=== PATIENT | female | born 1980 | race Caucasian/White ===

== ENCOUNTER 2016-09-23 15:36 | Inpatient (IN) | payer MEDICARE, OTHER ==
[~2016-09-23] VITALS: Ht 167.6 cm; Wt 83.5 kg
--- NOTE | ~2016-09-23 | A ---
[facility] Nutrition Therapy DATE: 09/24/16 Patient: ANGLE GLOVER Physician: STUART Address: Ghulam GARCIA Room/Bed: [address], Zip: [place] [id number] Admit Date: 09/23/16 Date of : [birth year] Height: 5 6 Weight: 196 89 NUTRITIONAL ASSESSMENT: REASON: PT SEEN FOR DX PT IS 36 Y.O. FEMALE ADMITTED FOR DKA PMH: UNCONTROLLED DM, HTN, GERD, ANXIETY, DEPRESSION, PERIPHERAL NEUROPATHY, COPD, HX OF CHOLECYSTECTOMY Anthropometrics: 5'6", WT: 184# (84 KG), BMI: 29.7 Labs: GLU: 159, CA+:7.4, M.5, PHOS: 1.7, A1c: 12.8 (BACK IN 2013) Meds: LOVENOX, NOVOLOG, KCL, MAG SULFATE, ZOFRAN, PROTONIX I/O & Bowel function: 1543/3, 2 BMs NOTED Skin Integrity: NO KNOWN SKIN ISSUES Estimated Nutrition Needs: INCREASED NEEDS 2' DECREASED PO INTAKE AND APPETITE, CURRENT CONDITION, ?UNINTENTIONAL WEIGHT LOSS Assessment: CHART REVIEWED AND EVENTS NOTED. PT SEEN FOR DX. PT SLEEPY/LETHARGIC AT TIME OF VISIT. RD ATTEMPTED TO CONDUCT NUTRITION INTERVIEW AND PROVIDE CC WRITTEN AND VERBAL DIET EDUCATION BUT UNSUCCESSFUL. PT NODDED "YES" TO TRYING GLUCERNA SHAKES FOR ADDITIONAL PROTEIN, KCAL AND FLUIDS. PER RN AND CHART, PT NOTED TO HAVE N/V/D PRIOR TO ADMIT, DECREASED APPETITE NOTED. PER [employer] PT WEIGHED ~262# BACK IN 2013. NO FAMILY IN ROOM AT TIME OF VISIT. RD TO FOLLOW. SEE RECOMMENDATIONS BELOW. Dx: INADEQUATE PROTEIN-ENERGY INTAKE R/T CURRENT CONDITION, CURRENT DIAGNOSIS AEB PT NOTED TO HAVE DECREASED APPETITE, N/V/D NOTED PRIOR TO ADMIT. IMPAIRED GLYCEMIC CONTROL R/T DX, PMH AEB ELEVATED BLOOD SUGAR LEVELS, PT ADMITTED IN 2013 FOR UNCONTROLLED DM. (A1c IN 2013 WAS 12.8). Intervention: 1. CC DIET 2. GLUCERNA SHAKES BID 3. WRITTEN DIET EDUCATION Monitoring, Evaluation and Goals: 1. ORAL INTAKE; CONSUME/TOLERATE >50% OF MEALS AND SUPPLEMENTS 2. WEIGHTS; PROMOTE GRADUAL WEIGHT LOSS TOWARDS HEALTHY BMI; PREVENT UNINTENTIONAL WEIGHT LOSS 3. LABS; GLU, LYTES [facility] Nutrition Therapy DATE: 09/24/16 Patient: ANGLE GLOVER Physician: STUART Address: [facility] ASHISH GARCIA Room/Bed: [address], Zip: [place] [address] Admit Date: 09/23/16 Date of : [birth year] Height: 5 6 Weight: 196 89 4. GI; PROMOTE REGULAR GI FUNCTION MONITOR: -PO INTAKE/APPETITE -WEIGHTS -SUPPLEMENT INTAKE Recommendations: 1. REPLETE LYTES TO WNL-MG+ AND PHOS LOW 2. PLEASE ORDER STRAWBERRY GLUCERNA SHAKES BID W/MEALS 3. RECOMMEND TO OBTAIN UPDATED A1c TO FURTHER ASSESS DM MANAGEMENT 4. APPRECIATE FAMILY AND STAFF TO ENCOURAGE SLOW GRADUAL PO INTAKE RD WILL F/U PER PROTOCOL PT IS MILD/MODERATELY COMPROMISED Respectfully, NICK EDMONDSON MS, RD, LD Food and Nutritional Services [facility] cc: client file
--- NOTE | ~2016-09-23 | HP ---
Unit #: [id number] #: [id number] Patient: ANGLE GLOVER [id number] [address] [place], [place] [address] [id number] I MR#: [id number] NAME: ANGLE GLOVER ROOM: [facility] Age: 36 Sex: F Admission Date: 09/23/2016 : 1980 Attending Physician: Pablo Weldon M.D. HISTORY AND PHYSICAL CHIEF COMPLAINT Nausea, vomiting, diarrhea for a few days; she was found to be in DKA. DISCUSSION This is a 36-year-old female who has a history of insulin-dependent diabetes, history of anxiety, depression, GERD, chronic pain syndrome, hypertension, peripheral neuropathy. She presented to emergency room in [facility] with chief complaint of nausea, vomiting, diarrhea for a few days. She was found to be on blood test in diabetic ketoacidosis and eventually she was admitted here in the ICU for DKA. She feels better now. She denies fever, chills, cough. She has been having nausea, vomiting, diarrhea for three days and she denies chest pain, diaphoresis or any other complaint. PAST MEDICAL HISTORY 1. History of anxiety/depression. 2. GERD. 3. Chronic pain syndrome. 4. Hypertension. 5. History of peripheral neuropathy. PAST SURGICAL HISTORY 1. History of cholecystectomy. 2. Tonsillectomy. 3. History of colon resection. 4. History of EGD. 5. History of colon biopsy. SOCIAL HISTORY She smokes a half pack daily, denies alcohol. She denies other illicit drug use. FAMILY HISTORY Father is from heart problems. Mother had . HOME MEDICATIONS Medications from home are followin. Lantus 30 units q.h.s. 2. Zofran 4 mg ODT p.r.n. 3. Topamax 50 mg daily. 4. Glucophage 500 b.i.d. 5. Protonix 40 mg daily. 6. Bentyl 20 mg b.i.d. 7. Neurontin 600 mg t.i.d. Unit #: [id number] #: [id number] Patient: ANGLE GLOVER 8. Lisinopril 20 mg daily. 9. Humalog sliding scale. 10. Amitriptyline 150 mg q.h.s. 11. Methocarbamol 500 mg t.i.d. 12. Tenormin 100 mg daily. 13. Diclofenac sodium 75 mg daily. 14. Hydrochlorothiazide 25 mg daily. REVIEW OF SYSTEMS CONSTITUTIONAL: No fever. No chills. PULMONARY: No wheezing. No shortness of breath. CARDIOVASCULAR: No chest pain. No diaphoresis. GASTROINTESTINAL: Positive for nausea, vomiting, diarrhea for a few days. GENITOURINARY: No dysuria. NEUROLOGICAL: No headache. No dizziness. SKIN: No rash. PHYSICAL EXAMINATION GENERAL: On examination this is a middle-aged female lying in the bed comfortably, currently not in any distress. On general examination she is alert, awake, oriented x3, comfortable, not in any distress. VITAL SIGNS: Current vitals are following: Temperature 98, heart rate 116, respiratory rate 20, blood pressure 134/80. HEENT: On HEENT examination pupils equally react to light and accommodation. Head is normocephalic and atraumatic. NECK: Supple. No JVD. HEART: S1, S2, regular rate and rhythm. ABDOMEN: Soft, nontender and nondistended. Bowel sounds positive. LUNGS: Clear to auscultation bilaterally. No rhonchi. No wheezing. EXTREMITIES: Inspection normal. No cyanosis. No clubbing. No edema. PSYCHIATRIC: Cooperative, normal mood and affect. SKIN: Warm and dry. No rash. DIAGNOSTIC STUDIES LABORATORY: Workup is following: ABG with pH 7.515, bicarb 105.6. Glucose 420, sodium 131, potassium 5.4, BUN is 17, creatinine 1.7, anion gap . ASSESSMENT AND PLAN 1. Diabetic ketoacidosis: Continue insulin drip as per insulin DKA protocol. 2. History of anxiety/depression. 3. Gastroesophageal reflux disease. 4. Chronic pain syndrome. 5. Hypertension. 6. Peripheral neuropathy. 7. DVT prophylaxis: Will place the patient on Lovenox. Dictated by Efra Plunkett/da TD: 09/23/2016 22:20 JOB #: [id number] Unit #: [id number] #: [id number] Patient: ANGLE GLOVER HISTORY AND PHYSICAL Page 1 of 1 X X HISTORY AND PHYSICAL
--- NOTE | ~2016-09-23 | EKG ---
PATIENT: ANGLE GLOVER UNIT #: [id number] Ventricular Rate: 116 BPM Atrial Rate: 116 BPM P-R Interval: 158 ms QRS Duration: 76 ms Q-T Interval: 322 ms QTC Calculation(Bezet): 447 ms P [place]: 60 degrees Calculated R [place]: 60 degrees Calculated T [place]: 55 degrees Diagnosis Line: Sinus tachycardia Diagnosis Line: Possible Left atrial enlargement Diagnosis Line: Borderline ECG Diagnosis Line: No previous ECGs available Diagnosis Line: Confirmed by GLYNN HOLDEN MD ([id number]) on Diagnosis Line: 09/24/2016 2:00:22 PM INTERPRETING MD: ADINA NEUMANN
--- NOTE | ~2016-09-23 | DS ---
Unit #: [id number] #: [id number] Patient: ANGLE BRIGHT [id number] [address] [address] [id number] I MR#: [id number] NAME: ANGLE BRIGHT ROOM: 233 Age: 36 Sex: F Admission Date: 09/23/2016 : 1980 Discharge Date: 09/25/2016 Attending Physician: Yasmin Mike M.D. DISCHARGE SUMMARY PRIMARY CARE PHYSICIAN Unknown. PRINCIPAL DIAGNOSES 1. Diabetic ketoacidosis. 2. Diabetes mellitus type 1, uncontrolled with hemoglobin A1c of 9.3. 3. Non-anion gap metabolic acidosis likely a combination of renal tubular acidosis with perhaps some underlying starvation ketosis. 4. Gastroesophageal reflux disease. 5. Chronic pain syndrome. 6. Irritable bowel syndrome. 7. Hypertension. 8. Anxiety and depression. 9. Diabetic peripheral neuropathy. 10. Protein malnutrition, mild. 11. Tobacco use. CONSULTANTS None. PROCEDURES Chest x-ray on 09/23/2016, which was normal. CLINICAL HISTORY AND HOSPITAL COURSE Ms. Bright is a nice 36-year-old female, who presents to the emergency department with nausea, vomiting, and diarrhea. In the emergency department, the patient was found to be in DKA. The patient's anion gap was significantly elevated and her glucose was 420. She was subsequently admitted to the ICU. The patient was placed on insulin drip. Unfortunately, her sugars remained relatively well controlled. Her anion gap resolved and she was transitioned to subcutaneous insulin and started on diet. She did have some mild nausea initially with initiation of diet, but this has resolved. Sugars on home dose of insulin currently are still mildly elevated in the 200s. I am going to schedule a dose of NovoLog to take with meals without fail. In addition, continue Lantus and she has been counseled regarding diabetic diet. The patient's only other complaint during hospitalization was some reflux. She was placed back on her Protonix b.i.d. which is a home dose and symptoms resolved. She did have one of two blood cultures, which ultimately was determined to be contaminant. Unit #: [id number] #: [id number] Patient: ANGLE BRIGHT DISCHARGE CONDITION Stable. DISCHARGE STATUS Discharged to home. DISCHARGE MEDICATIONS Zofran 4 mg p.o. q.6 hours p.r.n. for nausea and vomiting, gabapentin 600 mg t.i.d., Topamax 50 mg daily, amitriptyline 150 mg at bedtime, metformin 500 mg b.i.d., Bentyl 20 mg p.o. b.i.d., atenolol 100 mg daily, hydrochlorothiazide 25 mg daily, lisinopril 20 mg daily, Humalog 3 units subcu t.i.d. with meals with associated sliding scale, Lantus 30 units subcutaneously at bedtime, Protonix 40 mg b.i.d., methocarbamol 500 mg p.o. t.i.d. DISCHARGE INSTRUCTIONS The patient was instructed to follow a constant carb diet. She should obtain Accu-Cheks a.c. and h.s. at home. She can increase her activity as tolerated. She should refrain from any further tobacco use. FOLLOWUP The patient will follow up with her primary care provider in 2 weeks. Dictated by... Yasmin Mike M.D. FRANCO/magno TD: 09/28/2016 05:56 JOB #: [id number] DISCHARGE SUMMARY Page 1 of 1 X Yasmin Mike MD X DISCHARGE SUMMARY
--- NOTE | ~2016-09-23 | CR72 ---
[facility] A Service of [facility] & [facility] RADIOLOGY TEXT RESULTS PATIENT: ANGLE GLOVER LOCATION: [place] [address] : [birth year] UNIT #: [id number] AGE: [address]: Yasmin Mike MD SEX: F ORDER DR: [id number] [facility] [address] [facility]. [place], [place] [address] [id number] I MR#: [id number] Acc #: [id number] NAME: ANGLE GLOVER : 1980 SEX: F STUDY DATE/TIME: 09/23/2016 19:49 UNIT: [facility] ROOM: [facility] STUDY DESCRIPTION: CR Chest Single View Portable Attending Physician: Pablo Weldon M.D. Ordering Physician: Pablo Weldon M.D. MEDICAL IMAGING REPORT This report is preliminary unless electronic signature is present EXAM Chest x-ray 09/23/2016 HISTORY 36-year-old female with diabetic ketoacidosis. DKA protocol. She notes a 3-day history of cough, nausea and vomiting. TECHNIQUE AP portable chest x-ray. FINDINGS The lungs are expanded and clear. Heart size and pulmonary vascularity are normal. No visible pulmonary infiltrate, pulmonary edema or pleural effusion. IMPRESSION Negative chest. Dictated by... Leonidas Clark M.D. THIS IS AN ELECTRONICALLY VERIFIED REPORT Leonidas Clark M.D. at 09/24/2016 4:55 PM AKILW/tatyana TD: 09/24/2016 00:50 JOB #: [id number] MEDICAL IMAGING REPORT Page 1 of 1 COPY
[~2016-09-23 15:36] MED LIST: AMITRIPTYLINE150 MG PO; ATENOLOL PO; BENTYL20 MG PO; HYDROCHLOROTHIA25 MG PO; METHOCARBAMOL500 MG PO; MULTI VITAMIN1 EACH PO; NORVASC10 MG PO; PROTONIX PO; VOLTAREN75 MG PO
[2016-09-23] MEDS ORDERED: LISINOPRIL20 MG PO (18:53)
[2016-09-23] MEDS ORDERED: NEURONTIN600 MG PO (18:53)
[2016-09-23] MEDS ORDERED: HUMALOG100 UNIT/1 SUBQ (18:54)
[2016-09-23] MEDS ORDERED: LANTUS100 U/ML SUBQ (18:54)
[2016-09-23] MEDS ORDERED: ZOFRAN ODT4 M1 PO (18:55)
[2016-09-23] MEDS ORDERED: TOPAMAX50 MG PO (18:55)
[2016-09-23 19:51] LABS: ARTERIAL BLD GAS O2 SATURATION 97.2 % (90.0-100.0); ARTERIAL BLOOD GAS CARBOXY HB 0.8 %sat (0.0-9.0); ARTERIAL BLOOD GAS HCO3 9.9 mmol/L; ARTERIAL BLOOD GAS MET HB 0.8 %sat (0.0-2.0); ARTERIAL BLOOD GAS pH 7.243 (7.350-7.450)
[2016-09-23 19:52] LABS: ARTERIAL BLOOD GAS ALLEN TEST NORMAL; ARTERIAL BLOOD GAS ART SITE LEFT RADIAL; ARTERIAL BLOOD GAS DELIVERY ROOM AIR; ARTERIAL DRAW? YES
[2016-09-23 20:48] LABS: BETA HYDROXYBUTYRATE 7.69 MMOL/L (0.02-0.27); BUN/CREATININE RATIO 13.33; CALCIUM SERUM 7.8 mg/dL (8.4-10.2); CREATININE SERUM 0.9 mg/dL (0.6-1.4); GLOM FILT RATE Estimated 81.2 mL/min (>60); POTASSIUM 3.7 mmol/L (3.5-5.1)
[2016-09-23] MEDS ORDERED: GLUCOPHAGE500 MG PO (21:02)
[2016-09-23 22:05] LABS: URINE SOURCE CLEAN CATCH
[2016-09-23 22:10] LABS: URINE APPEARANCE CLEAR; URINE BILIRUBIN NEG (NEG); URINE BLOOD NEG (NEG); URINE COLOR YELLOW; URINE GLUCOSE 500 MG/DL (NEG); URINE KETONE 3+ (NEG); URINE LEUKOCYTE ESTERASE NEG (NEG); URINE NITRATE NEG (NEG); URINE PH 5.5 (5-8); URINE PROTEIN 1+ (NEG); URINE SPECIFIC GRAVITY 1.023 (1.003-1.035)
[2016-09-23 22:12] LABS: URBCS1 AUWI 0-2 /[HPF] (0-2); URINE BACTERIA AUWI 1+ (NEGATIVE); URINE SQUAMOUS EPITHELIAL CELL OCC /[HPF]
[2016-09-24 01:06] LABS: BUN/CREATININE RATIO 11.25; CALCIUM SERUM 7.6 mg/dL (8.4-10.2); CREATININE SERUM 0.8 mg/dL (0.6-1.4); GLOM FILT RATE Estimated 93.6 mL/min (>60); POTASSIUM 3.3 mmol/L (3.5-5.1)
[2016-09-24 09:12] LABS: BUN/CREATININE RATIO 11.25; CALCIUM SERUM 7.4 mg/dL (8.4-10.2); CREATININE SERUM 0.8 mg/dL (0.6-1.4); GLOM FILT RATE Estimated 93.6 mL/min (>60); MAGNESIUM 1.5 mg/dL (1.6-3.0); POTASSIUM 3.9 mmol/L (3.5-5.1)
[2016-09-24 15:42] LABS: CALCIUM SERUM 7.3 mg/dL (8.4-10.2); CREATININE SERUM 0.7 mg/dL (0.6-1.4); GLOM FILT RATE Estimated 109.9 mL/min (>60); POTASSIUM 3.4 mmol/L (3.5-5.1)
[2016-09-25 06:35] LABS: CALCIUM SERUM 7.8 mg/dL (8.4-10.2); CREATININE SERUM 0.5 mg/dL (0.6-1.4); GLOM FILT RATE Estimated 122.8 mL/min (>60); POTASSIUM 3.7 mmol/L (3.5-5.1)
[2016-09-25] MEDS ORDERED: HUMALOG100 UNIT/1 SUBQ (10:28)
== END 2016-09-25 13:37 | disposition home or self-care (01) | DRG 638 ==
LOC: UNDOADMOB 15:36 → CICCU3 15:36 → C2A 15:40 → CICCU3 15:40 → C2A 09-24 15:57
PROVIDERS: Internal Medicine
PROC: 02HV33Z Insertion of Infusion Device into Superior Vena Cava, Percutaneous Approach (ICD-10-PCS; principal; 2016-09-23)
PROC: 4A02X4A Measurement of Cardiac Electrical Activity, Guidance, External Approach (ICD-10-PCS; 2016-09-23)
DX: E10.10 Type 1 diabetes mellitus with ketoacidosis without coma (principal); E44.1 Mild protein-calorie malnutrition; I10 Essential (primary) hypertension; Z79.4 Long term (current) use of insulin; N25.89 Other disorders resulting from impaired renal tubular function; G89.4 Chronic pain syndrome; K21.9 Gastro-esophageal reflux disease without esophagitis; K58.9 Irritable bowel syndrome, unspecified; F41.9 Anxiety disorder, unspecified; F32.9 Major depressive disorder, single episode, unspecified; Z68.29 Body mass index [BMI] 29.0-29.9, adult; F17.200 Nicotine dependence, unspecified, uncomplicated; Z90.49 Acquired absence of other specified parts of digestive tract; Z82.49 Family history of ischemic heart disease and other diseases of the circulatory system
CPT/HCPCS: 36600; 71010; 80048; 81003; 82010; 82150; 82803; 82947; 83036; 83690; 83735; 84100; 84132; 87040; 93005; J1650; J1815; J2405; J3370; J3475; J3490

== ENCOUNTER 2016-10-11 17:36 | Inpatient (IN) | payer MEDICARE ==
[~2016-10-11] VITALS: Ht 167.6 cm; Wt 89.0 kg
--- NOTE | ~2016-10-11 | DS ---
Unit #: [id number] #: [id number] Patient: ANGLE GLOVER [id number] [address] [address] [id number] I MR#: [id number] NAME: ANGLE GLOVER ROOM: 229 Age: 36 Sex: F Admission Date: 10/11/2016 : 1980 Discharge Date: 10/13/2016 Attending Physician: Yasmin Mike M.D. Primary Care Physician: No Primary Care Physician DISCHARGE SUMMARY ADDENDUM Please note cost of insulin was checked in our [facility], and the patient's insulins and pen needles are all approximately $8 each, which she states she can afford. Thus, discharge medications are as follows: DISCHARGE MEDICATIONS 1. Zofran oral disintegrating tablet, 4 mg p.o. q.6 hours p.r.n. nausea. 2. Topamax 50 mg daily. 3. Amitriptyline 150 mg at bedtime. 4. Paxil 20 mg each morning. 5. Metformin 500 mg p.o. b.i.d. 6. Bentyl 20 mg 2 tablets b.i.d. 7. Atenolol 25 mg daily. 8. Lisinopril 20 mg 1/2 tablet p.o. daily. 9. Humalog 3 units subcu t.i.d. with meals with associated sliding scale. 10. Lantus 30 units subcutaneously at bedtime. 11. Protonix 40 mg b.i.d. 12. Methocarbamol 500 mg p.o. t.i.d. NOTE: Glucometer, test strips, lancets were all written, as well. DISCHARGE INSTRUCTIONS As previously dictated. Dictated by... Yasmin Mike M.D. FRANCO/suzy TD: 10/17/2016 07:45 JOB #: [id number] Unit #: [id number] #: [id number] Patient: ANGLE GLOVER DISCHARGE SUMMARY Page 1 of 1 X Yasmin Mike MD X DISCHARGE SUMMARY
--- NOTE | ~2016-10-11 | DS ---
Unit #: [id number] #: [id number] Patient: ANGLE BRIGHT [id number] [address] [address] [id number] I MR#: [id number] NAME: ANGLE BRIGHT ROOM: 229 Age: 36 Sex: F Admission Date: 10/11/2016 : 1980 Discharge Date: 10/13/2016 Attending Physician: Yasmin Mike M.D. Primary Care Physician: No Primary Care Physician DISCHARGE SUMMARY PRINCIPAL DIAGNOSES 1. Diabetic ketoacidosis. 2. Diabetes mellitus type 1, uncontrolled with hemoglobin A1c of 9.1. 3. Hypokalemia. 4. Hypophosphatemia. 5. Hypomagnesemia. 6. Diabetic peripheral neuropathy. Off of gabapentin. 7. Chronic pain syndrome. 8. Irritable bowel disease. 9. Medication induced hypoglycemia. 10. Anxiety and depression. 11. Gastroesophageal reflux disease. 12. Moderate protein malnutrition. CONSULTANTS None. PROCEDURES PERFORMED Chest x-ray on 10/12/2016 without any acute findings. CLINICAL HISTORY/HOSPITAL COURSE Ms. Bright is a nice 36-year-old female who presented to the emergency department with complaints of feeling ill with nausea, vomiting and diarrhea. She was found to be in diabetic ketoacidosis in the emergency department. She was started on IV fluids, insulin drip and admitted to the ICU. Overnight the patient's blood sugars improved significantly and her anion gap closed. She was transitioned to subcutaneous insulin and has subsequently been transferred to the medical floor. Sugars this morning are actually mildly hypoglycemic, but this is improved after diet. The patient did have several associated electrolyte abnormalities, all of which are in the process of being replaced or have been replaced. I will note the patient was admitted to this facility in September with diabetic ketoacidosis as well. Review of medications from her pharmacy indicates that she has likely been out of her Lantus for quite some time. I am going to check the cost of her insulin at this pharmacy and if too expensive, will try to adjust her regimen. My clinical suspicion is that cost is a significant factor in her recurrent admissions. The patient will be discharged home later today. DISCHARGE CONDITION Unit #: [id number] #: [id number] Patient: ANGLE BRIGHT Stable. DISCHARGE STATUS Discharge to home. DISCHARGE MEDICATIONS Will be dictated as an addendum. DISCHARGE INSTRUCTIONS 1. The patient is instructed to follow a heart healthy, constant carb diet. 2. Continue Accu-Cheks morning and evening at home. 3. She can increase her activity as tolerated. FOLLOWUP The patient will follow up with her primary manager outpatient, Dr. Hanna Hayes, in two weeks. Dictated by... Yasmin Mike M.D. FRANCO/eve TD: 10/13/2016 09:57 JOB #: [id number] DISCHARGE SUMMARY Page 1 of 1 X Yasmin Mike MD X DISCHARGE SUMMARY
--- NOTE | ~2016-10-11 | HP ---
Unit #: [id number] #: [id number] Patient: ANGLE GLOVER [id number] [address] [address] [id number] I MR#: [id number] NAME: ANGLE GLOVER ROOM: [facility] Age: 36 Sex: F Admission Date: 10/11/2016 : 1980 Attending Physician: Jessica Alonzo M.D. Primary Care Physician: No Primary Care Physician HISTORY AND PHYSICAL CHIEF COMPLAINT Diabetic ketoacidosis. HISTORY This pleasant 36-year-old female with type 2 diabetes mellitus, GERD, hypertension, was transferred from [place] emergency department for diabetic ketoacidosis. The patient states that she felt somewhat ill last evening. Early this morning developed nonblood nausea, vomiting, diarrhea, felt hot. Also experienced polyuria and polydipsia. She was at her primary care physician, who found her serum glucose to be elevated and the patient, and the patient was sent to the emergency department. In the ER, the patient was found to be in DKA. Her pH was 7.17, serum glucose 412, CO2 8 with an anion gap of 23. She was bolused, I believe, with 2 L of saline, given 10 IV of regular Novolin and started on a Novolin R drip. She currently has an Accu-Chek of 128 on 3 units/hour of Novolin R. Currently is feeling improved. Denies ill contacts, eating anything out of the ordinary, recent travel or antibiotics. She was last admitted to this facility about two weeks ago for DKA with nausea, vomiting and diarrhea. PAST MEDICAL HISTORY 1. IDDM with peripheral neuropathy, diagnosed 09/2013. 2. Anxiety and depression. 3. GERD. 4. Chronic back pain. 5. Essential hypertension. 6. Possible thyroid disease. 7. Irritable bowel syndrome. 8. Admission 09/2013 for ischemic distal ileum requiring partial colectomy and drainage of a pelvic abscess. Patient required mechanical ventilation at that time, was septic with acute kidney injury. It was during that admission that she was diagnosed with diabetes mellitus. 9. Cholecystectomy. 10. Tonsillectomy. 11. EGD. ALLERGIES No known drug allergies. HOME MEDICATIONS 1. Lantus 30 units subcu q. h.s. 2. I believe 3 units of Humalog t.i.d. plus sliding scale. Unit #: [id number] #: [id number] Patient: ANGLE GLOVER 3. Bentyl 20 mg q.i.d. 4. Protonix 40 mg b.i.d. 5. Neurontin 600 mg t.i.d. 6. Atenolol, possibly 25 mg b.i.d. 7. Lisinopril 20 mg daily. 8. Topamax 50 mg daily or b.i.d. 9. Elavil 150 mg q. h.s. 10. P.r.n. Zofran. 11. Robaxin 500 mg t.i.d. 12. Hydrochlorothiazide 25 mg daily. 13. Metformin 500 mg b.i.d. 14. Glipizide 5 mg b.i.d. FAMILY HISTORY Diabetes mellitus and CAD. SOCIAL HISTORY The patient lives with her fiance. She was smoking up to a half pack per day of tobacco until a week ago when she stopped smoking. Does not drink alcohol or use illicit drugs. REVIEW OF SYSTEMS Notable for nausea, vomiting, diarrhea, feeling hot, diabetes, neuropathy, hypertension, chronic back pain, irritable bowel syndrome, anxiety, depression, migraine headaches, above mentioned surgeries, polyuria, polydipsia, diabetes. All other systems were reviewed and otherwise negative. PHYSICAL EXAMINATION GENERAL APPEARANCE: Pleasant, moderately obese 36-year-old female who currently is in no acute distress. VITAL SIGNS: Temperature prior to arrival was 96.7. Her current systolic blood pressure is 97, O2 saturation 100%, heart rate 110. HEENT: Eyes PERRLA. Extraocular muscles are intact. Pharynx is benign, edentulous. NECK: Supple with possibly a little bit of generous thyroid. No adenopathy. CHEST: Clear. CARDIAC: Normal S1 and S2 without murmur. ABDOMEN: Bowel sounds are present. Well-healed scars noted. Nontender. No hepatosplenomegaly or masses. EXTREMITIES: Without C, C or E. Pedal pulses are present. No ulcers on the feet. NEUROLOGIC EXAM: The patient is awake, alert, oriented. Her cranial nerves are intact. She has equal strength throughout. DIAGNOSTIC STUDIES LABORATORY: Admission labs - hematocrit 40.2, white blood count 16, normal platelet count. SMA-12 - glucose 131 which does correct. Glucose was 412. CO2 8, anion gap 23, BUN 21, creatinine 1.36. BHOB elevated. Normal lipase. Lactic acid normal at 2. Beta hCG negative. Urinalysis - specific gravity greater than 1.030 with positive glucose, ketones, bilirubin but without significant white or red cells. ABG - pH 7.17, pCO2 16, pO2 131 on room air. Unit #: [id number] #: [id number] Patient: ANGLE GLOVER Cardiac markers are negative. IMAGING: Chest x-ray - no acute disease. CARDIOVASCULAR: EKG - sinus tachycardia, rate 110, otherwise normal. ASSESSMENT 1. Diabetic ketoacidosis in this type 2 diabetic female, possibly precipitated by gastroenteritis. 2. AODM with peripheral neuropathy. 3. History of hypertension with somewhat lowish blood pressures at present. 4. Chronic back pain. 5. GERD. 6. Anxiety and depression. 7. Migraine headaches. PLAN 1. Insulin drip. Add dextrose IV fluids, check stat labs and monitor chemistries carefully. 2. Repeat all labs in the morning and check a hemoglobin A1c. 3. Stool cultures. 4. IV fluids and supportive treatment. 5. Hold Topamax given significant metabolic acidosis. Will also hold lisinopril, oral diabetic medications for now. 6. DVT prophylaxis. Critical care time spent in evaluating this patient was 35 minutes. Dictated by Ana Grullon M.D. YOANA/cherelle TD: 10/12/2016 05:44 JOB #: [id number] HISTORY AND PHYSICAL Page 1 of 1 X Ana Grullon MD X HISTORY AND PHYSICAL
--- NOTE | ~2016-10-11 | CR72 ---
[facility] A Service of [facility] & [facility] RADIOLOGY TEXT RESULTS PATIENT: ANGLE GLOVER LOCATION: [facility] 229-01 : [birth year] UNIT #: [id number] AGE: [address]: Bull Mary MD SEX: F ORDER DR: [id number] [facility] [address] [facility] [place] [facility]. [place], [place] [address] [id number] I MR#: [id number] Acc #: [id number] NAME: ANGLE GLOVER : 1980 SEX: F STUDY DATE/TIME: 10/12/2016 2:21 UNIT: [facility] ROOM: [facility] STUDY DESCRIPTION: CR Chest Single View Portable Attending Physician: Jessica Alonzo M.D. Ordering Physician: Ana Grullon M.D. Primary Care Physician: No Primary Care Physician MEDICAL IMAGING REPORT This report is preliminary unless electronic signature is present EXAMINATION AP portable chest dated 10/12/2016 at 02:21. HISTORY Shortness of breath, symptoms began 2 days ago. History of diabetes. Hypertension. Smoking history. Diabetic ketoacidosis with PICC line placement. COMPARISON AP portable chest, 10/11/2016. FINDINGS Low volume inspiration. Clear lungs. Heart size upper limits of normal and stable. Left arm approach PICC tip extends to the upper SVC level. No visible pneumothorax. No acute osseous abnormality. IMPRESSION 1. Low volume inspiration. No acute chest findings. 2. Left arm approach PICC tip extends to the upper SVC level. Dictated by... Maria Del Rosario Ortiz M.D. THIS IS AN ELECTRONICALLY VERIFIED REPORT Maria Del Rosario Ortiz M.D. at 10/12/2016 9:55 PM [facility]/andres TD: 10/12/2016 06:47 JOB #: [id number] MEDICAL IMAGING REPORT Page 1 of 1 COPY
--- NOTE | ~2016-10-11 | A ---
[facility] Nutrition Therapy DATE: 10/12/16 Patient: ANGLE GLOVER Physician: ALL Address: [address] Room/Bed: [address], Zip: [place] [address] Admit Date: 10/11/16 Date of : 76 Height: 5 6 Weight: 196 89 NUTRITIONAL ASSESSMENT: REASON: DKA Dx 36 yo female admitted for DKA PMH: DM, GERD, HTN, IBS, possible thyroid disease, ischemic distal ileum requiring partial colectomy, cholecystectomy Anthropometrics: Ht: 66" Wt: 89 kg BMI: 31.7 Labs: Na+ 131 Gluc 253 Ca++ 7.1 Alb 2.7 Mg++ 1.5 Phos 1.8 Accuchecks 90-241 HgbA1C 9.1 Meds: Protonix, Kcl, novolin, D50%, zofran, Phos-nak I/O & Bowel function: , last BM 10/11 Skin Integrity: Redness- under abdominal folds Discoloration to BL legs/ feet Edema: none noted Diet: Clear liquids (NCS) Assessment: Chart reviewed, events noted. 36 yo female admitted for DKA, with recent previous admission in August for DKA. JASON at [facility] saw this pt during this previous admission and provided printed DM diet materials, with unsuccessful verbal education. RD spoke with the pt at bedside today. Pt denies having weight loss since her previous admission. Per information in [facility], her weights have been stable. Pt did have several questions regarding her diet, and RD provided her with verbal and printed consistent carbohydrate diet education. Pt states that she has been consuming ~60 grams per meal[address] RD provided in-depth diet education on carb counting. Pt voiced motivation to make changes, stating that she wants to attend outpatient classes. RD suggested her local health dept. Pt states she is veyr hungry at this time, but remains on insulin drip for DKA protocol. Dx: Impaired glycemic control RT likely poor compliance, possibly illness AEB HgbA1C 9.1, accuchecks 90-241. Intervention: 1. Advance to CCD once feasible 2. CCD education provided by JASON [facility] Therapy DATE: 10/12/16 Patient: ANGLE GLOVER Physician: ALL Address: [address] [place] [address] Room/Bed: [address], Zip: [place] [address] Admit Date: 10/11/16 Date of : 76 Height: 5 6 Weight: 196 89 Monitoring, Evaluation and Goals: 1. Oral intake; advance to solid food once feasible 2. Improve labs; glucose, electrolytes 3. Weight; promote gradual weight loss when appropriate Recommendations: 1. Once medically feasible, advance the pt to a consistent carbohydrate/ heart healthy diet as tolerated. 2. Replete electrolytes to WNL PRN (Na+, Phos, Mg++ low). 3. Optimize the pt's insulin regimen. Pt is at mild-moderate nutritional risk. RD will follow hospital course per protocol. Respectfully, DAGOBERTO FRASER, JASON, LD [facility] cc: client file
[~2016-10-11 17:36] MED LIST changes: +GLUCOPHAGE500 MG PO; +HUMALOG100 UNIT/1 SUBQ; +LANTUS100 U/ML SUBQ; +LISINOPRIL20 MG PO; +NEURONTIN600 MG PO; +TOPAMAX50 MG PO; +ZOFRAN ODT4 M1 PO
[2016-10-11] MEDS ORDERED: PAXIL10 MG PO (21:49)
[2016-10-11] MEDS ORDERED: GLIPIZIDE10 MG PO (21:49)
[2016-10-11 22:45] LABS: CALCIUM SERUM 7.8 mg/dL (8.4-10.2); GLOM FILT RATE Estimated 71.4 mL/min (>60); PHOSPHOROUS 1.8 mg/dL (2.5-4.6); POTASSIUM 3.5 mmol/L (3.5-5.1)
[2016-10-12 02:57] LABS: BUN/CREATININE RATIO 17.14; CALCIUM SERUM 7.4 mg/dL (8.4-10.2); CREATININE SERUM 0.7 mg/dL (0.6-1.4); GLOM FILT RATE Estimated 109.9 mL/min (>60); POTASSIUM 3.6 mmol/L (3.5-5.1)
[2016-10-12 06:22] LABS: BASOPHIL% 0.3 % (0-2.5); EOSINOPHIL% 0.1 % (0.0-7.0); HEMATOCRIT 30.7 % (35.0-45.0); HEMOGLOBIN 10.6 gm/dL (12.0-16.0); LYMPHOCYTE# 2.9 X10e3 (1.0-3.5); LYMPHOCYTE% 44.2 % (17.0-45.0); MEAN CELL VOLUME 94.4 FL (83-96); MEAN CORPUSCULAR HEMOGLOBIN 32.6 PG (28-34); MEAN CORPUSCULAR HGB CONC 34.5 g/dL (30-36); MEAN PLATELET VOLUME 7.1 FL (6.5-11.5); MONOCYTE# 0.5 X10e3 (0-1.0); MONOCYTE% 8.1 % (3.0-12.0); NEUTROPHIL# 3.1 X10e3 (1.5-7.1); NEUTROPHIL% 47.3 % (40-75); PLATELET COUNT 276 X10e3 (140-420); RED BLOOD COUNT 3.25 X10e (3.90-5.30); RED CELL DISTRIBUTION WIDTH 13.6 % (11.0-15.5); WHITE BLOOD COUNT 6.5 X10e3 (4.0-10.5)
[2016-10-12 06:24] LABS: DIFF IND NO
[2016-10-12 07:18] LABS: ALBUMIN SERUM 2.7 g/dL (3.5-5.0); ALKALINE PHOSPHATASE 46 U/L (32-92); ALT (SGPT) 10 U/L (10-40); AMYLASE 4 U/L (0-46); AST (SGOT) 7 U/L (10-42); BLOOD UREA NITROGEN 10 mg/dL (9-23); CALCIUM SERUM 7.1 mg/dL (8.4-10.2); CARBON DIOXIDE 13 mmol/L (22-31); CHLORIDE 106 mmol/L (100-111); CREATININE SERUM 0.8 mg/dL (0.6-1.4); GLOM FILT RATE Estimated 93.6 mL/min (>60); GLUCOSE FASTING 253 mg/dL (70-110); LIPASE <10 U/L (22-51); MAGNESIUM 1.5 mg/dL (1.6-3.0); POTASSIUM 3.7 mmol/L (3.5-5.1); PROTEIN TOTAL SERUM 4.7 g/dL (6.0-8.3); SODIUM 131 mmol/L (135-145)
[2016-10-12 12:48] LABS: BUN/CREATININE RATIO 8.88; CALCIUM SERUM 7.3 mg/dL (8.4-10.2); CREATININE SERUM 0.9 mg/dL (0.6-1.4); GLOM FILT RATE Estimated 81.2 mL/min (>60); POTASSIUM 3.1 mmol/L (3.5-5.1)
[2016-10-12 18:32] LABS: CALCIUM SERUM 7.4 mg/dL (8.4-10.2); CREATININE SERUM 0.6 mg/dL (0.6-1.4); GLOM FILT RATE Estimated 115.6 mL/min (>60); PHOSPHOROUS 2.2 mg/dL (2.5-4.6); POTASSIUM 4.2 mmol/L (3.5-5.1)
[2016-10-13 02:37] LABS: HEMATOCRIT 28.8 % (35.0-45.0); HEMOGLOBIN 9.9 gm/dL (12.0-16.0); MEAN CELL VOLUME 94.3 FL (83-96); MEAN CORPUSCULAR HEMOGLOBIN 32.6 PG (28-34); MEAN CORPUSCULAR HGB CONC 34.5 g/dL (30-36); MEAN PLATELET VOLUME 7.3 FL (6.5-11.5); RED BLOOD COUNT 3.05 X10e (3.90-5.30); RED CELL DISTRIBUTION WIDTH 13.7 % (11.0-15.5); WHITE BLOOD COUNT 5.4 X10e3 (4.0-10.5)
[2016-10-13 03:08] LABS: CALCIUM SERUM 7.4 mg/dL (8.4-10.2); CREATININE SERUM 0.6 mg/dL (0.6-1.4); GLOM FILT RATE Estimated 115.6 mL/min (>60); MAGNESIUM 2.1 mg/dL (1.6-3.0); PHOSPHOROUS 1.4 mg/dL (2.5-4.6)
== END 2016-10-13 13:59 | disposition home or self-care (01) | DRG 638 ==
LOC: CICCU3 17:36 → UNDOADMIN 17:36 → CICCU3 21:40 → C2A 10-12 15:35 → CICCU3 10-12 15:35 → C2A 10-13 07:51
PROVIDERS: Internal Medicine
PROC: 05H633Z Insertion of Infusion Device into Left Subclavian Vein, Percutaneous Approach (ICD-10-PCS; principal; 2016-10-12)
DX: E10.10 Type 1 diabetes mellitus with ketoacidosis without coma (principal); E44.0 Moderate protein-calorie malnutrition; E10.649 Type 1 diabetes mellitus with hypoglycemia without coma; E11.42 Type 2 diabetes mellitus with diabetic polyneuropathy; E83.42 Hypomagnesemia; I10 Essential (primary) hypertension; K21.9 Gastro-esophageal reflux disease without esophagitis; Z79.4 Long term (current) use of insulin; F41.9 Anxiety disorder, unspecified; F32.9 Major depressive disorder, single episode, unspecified; K58.9 Irritable bowel syndrome, unspecified; Z90.49 Acquired absence of other specified parts of digestive tract; M54.9 Dorsalgia, unspecified; Z87.891 Personal history of nicotine dependence; Z91.19 Patient's noncompliance with other medical treatment and regimen; E87.6 Hypokalemia; E83.39 Other disorders of phosphorus metabolism; G89.4 Chronic pain syndrome; Z68.31 Body mass index [BMI] 31.0-31.9, adult
CPT/HCPCS: 71010; 80048; 80053; 82150; 82947; 83036; 83690; 83735; 84100; 85025; 85027; 87045; 87177; 87209; 87427; 87493; 87899; J1650; J1815; J3475